=== PATIENT | female | born 1995 | race American Indian/Alaskan Native ===

== ENCOUNTER 2021-07-31 14:31 | Emergency (ER) | payer MEDICAID ==
[2021-07-31 15:08] VITALS: BP 117/77
[2021-07-31] MEDS ORDERED: HYDROcodone/ACETAMINOPHEN 5-325 MG TAB PO ONE (15:56)
[2021-07-31] MEDS ORDERED: METOCLOPRAMIDE 10 MG TAB PO ONE (15:56)
--- NOTE | 2021-07-31 16:03 | Emergency Department Report ---
ED ENT HPI - General Chief complaint: Pain General Stated complaint: JAW PAIN Time Seen by Provider: 07/31/21 15:14 Source: EMS Mode of arrival: Ambulatory Limitations: No Limitations - History of Present Illness Initial comments: Patient is a 26-year-old female presents emergency room with complaints of right-sided jaw pain that began 2 days ago. She states that the pain radiates to her right ear and her right side of her neck. She states that whenever she swallows she has discomfort in the jaw. She denies any fever, vomiting, diarrhea, shortness of breath, throat swelling. 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 Patient denies any past medical history or allergies to medications. - Related Data Previous Rx's Medication Instructions Recorded Last Taken Type Acetaminophen [Tylenol] 650 mg PO Q8HR PRN #20 capsule 07/31/21 Unknown Rx Amoxicillin/Potassium Clav 1 each PO BID 10 Days #20 tablet 07/31/21 Unknown Rx [Augmentin 875-125 Tablet] Allergies Allergy/AdvReac Type Severity Reaction Status Date / Time No Known Allergies Allergy Verified 07/31/21 15:45 ED Dental HPI - General Chief complaint: Pain General Stated complaint: JAW PAIN Time Seen by Provider: 07/31/21 15:14 Source: EMS Mode of arrival: Ambulatory Limitations: No Limitations - Related Data Previous Rx's Medication Instructions Recorded Last Taken Type Acetaminophen [Tylenol] 650 mg PO Q8HR PRN #20 capsule 07/31/21 Unknown Rx Amoxicillin/Potassium Clav 1 each PO BID 10 Days #20 tablet 07/31/21 Unknown Rx [Augmentin 875-125 Tablet] Allergies Allergy/AdvReac Type Severity Reaction Status Date / Time No Known Allergies Allergy Verified 07/31/21 15:45 ED Review of Systems ROS: Stated complaint: JAW PAIN Other details as noted in HPI Comment: All other systems reviewed and negative ED Past Medical Hx - Medications Home Medications: Home Medications Medication Instructions Recorded Confirmed Last Taken Type Acetaminophen [Tylenol] 650 mg PO Q8HR PRN #20 capsule 07/31/21 Unknown Rx Amoxicillin/Potassium Clav 1 each PO BID 10 Days #20 tablet 07/31/21 Unknown Rx [Augmentin 875-125 Tablet] ED Physical Exam - General Limitations: No Limitations General appearance: alert, in no apparent distress - Head Head exam: Present: atraumatic, normocephalic - Eye Eye exam: Present: normal appearance - ENT ENT exam: Present: normal orophraynx, mucous membranes moist, TM's normal bilaterally, normal external ear exam, other (no tonsillar hypertrophy or exudates, uvula is midline, no uvular edema or deviation, no trismus, no tongue elevation, underneath the tongue is soft, there is right sided jaw ttp in the region of the parotid gland, no ttp over the mastoid process) - Respiratory Respiratory exam: Present: normal lung sounds bilaterally. Absent: respiratory distress, wheezes, rales, rhonchi, stridor, chest wall tenderness, accessory muscle use, decreased breath sounds, prolonged expiratory - Cardiovascular Cardiovascular Exam: Present: regular rate, normal rhythm, normal heart sounds. Absent: systolic murmur, diastolic murmur, rubs, gallop - Neurological Exam Neurological exam: Present: alert, oriented X3 - Psychiatric Psychiatric exam: Present: normal affect, normal mood - Skin Skin exam: Present: warm, dry, intact ED Course Vital Signs 07/31/21 15:06 Temperature 98.6 F Pulse Rate 98 H Respiratory 16 Rate Blood Pressure 117/77 [Right] O2 Sat by Pulse 99 Oximetry ED Medical Decision Making - Medical Decision Making Patient is a 26-year-old female presents emergency room with complaints of right-sided jaw pain that began 2 days ago. She states that the pain radiates to her right ear and her right side of her neck. She states that whenever she swallows she has discomfort in the jaw. She denies any fever, vomiting, diarrhea, shortness of breath, throat swelling. 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 Patient denies any past medical history or allergies to medications. Vitals are stable. On exam no tonsillar hypertrophy or exudates, uvula is midline, no uvular edema or deviation, no trismus, no tongue elevation, underneath the tongue is soft, there is right sided jaw ttp in the region of the parotid gland, no ttp over the mastoid process. Examination appears consistent with parotitis. No signs of abscess at this time. Patient given medication while in the emergency department with improvement of symptoms. Patient given prescription for medications. Discussed the importance of ENT follow-up. Discussed very strict return precautions with patient. Advised patient Please take medication as prescribed. May suck on lemon lozenges or sour candy. Follow-up with a ear nose and throat doctor. Return to emergency room immediately for any new or worsening symptoms including but not limited to worsening pain, worsening swelling, fever, vomiting, unable to tolerate by mouth intake, difficulty breathing, etc. Critical care attestation.: If time is entered above; I have spent that time in minutes in the direct care of this critically ill patient, excluding procedure time. ED Disposition Clinical Impression: Parotitis Disposition: HOME / SELF CARE / HOMELESS Is pt being admited?: No Does the pt Need Aspirin: No Condition: Stable Instructions: Salivary Gland Infection Additional Instructions: Please take medication as prescribed. May suck on lemon lozenges or sour candy. Follow-up with a ear nose and throat doctor. Return to emergency room immediately for any new or worsening symptoms including but not limited to worsening pain, worsening swelling, fever, vomiting, unable to tolerate by mouth intake, difficulty breathing, etc. Prescriptions: Amoxicillin/Potassium Clav [Augmentin 875-125 Tablet] 1 each PO BID 10 Days #20 tablet Acetaminophen [Tylenol] 650 mg PO Q8HR PRN #20 capsule PRN Reason: pain Referrals: SHANIQUE COOLEY MD [Staff Physician] - 2-3 Days ROSENDA AMARO MD [Referring] - 2-3 Days Time of Disposition: 16:02 Print Language: PALAUAN
== END 2021-07-31 16:57 | disposition home or self-care (01) ==
LOC: ED 14:31
DX: O26.892 Other specified pregnancy related conditions, second trimester (principal); K11.20 Sialoadenitis, unspecified; Z3A.15 15 weeks gestation of pregnancy
CPT/HCPCS: 99282